=== PATIENT | male | born 2000 | race Caucasian/White ===

== ENCOUNTER 2018-08-01 23:04 | Emergency (ER) | payer OTHER ==
[~2018-08-01] VITALS: Ht 170.2 cm; Wt 75.7 kg
[2018-08-01 23:10] VITALS: BP_SYST 124
[2018-08-02 00:13] VITALS: BP_SYST 120
== END 2018-08-02 00:13 ==
LOC: SED 23:04
DX: R03.0 Elevated blood-pressure reading, without diagnosis of hypertension (principal); Z02.89 Encounter for other administrative examinations; V43.52XA Car driver injured in collision with other type car in traffic accident, initial encounter; Y93.89 Activity, other specified; Y92.410 Unspecified street and highway as the place of occurrence of the external cause; Y99.8 Other external cause status
CPT/HCPCS: 99283